=== PATIENT | male | born 1950 | race Caucasian/White ===

== ENCOUNTER 2022-01-11 15:56 | Observation (INO) | payer OTHER, SELFPAY ==
[2022-01-11 16:02] VITALS: BP 156/81; PULSE 68; RESP 18; TEMP 36.4; O2SAT 98; BMI 27.8
--- NOTE | 2022-01-11 16:09 | DI.RAD.S_ITS ---
PROCEDURE: XR FOOT RT MIN 3V INDICATIONS: ulcer, pain, TECHNIQUE: 3 views of the foot were acquired. COMPARISON: None. FINDINGS: Bones: No suspicious bony lesions. Metatarsus primus varus. Joint space narrowing and periarticular osteophyte formation at the 1st metatarsophalangeal joint. Dislocation of the 2nd and 3rd metatarsophalangeal joints. Possible mildly displaced fractures of the proximal phalanxes of the 2nd and 3rd digits. Soft tissues: No tibiotalar joint effusion. Achilles tendon appears normal. IMPRESSION: 1. Dislocated 2nd and 3rd metatarsophalangeal joints with possible associated periarticular fractures. 2. Metatarsus primus varus. Dictated by: Nacho Keenan M.D. on 01/11/2022 at 16:56 Approved by: Nacho Keenan M.D. on 01/11/2022 at 16:57
--- NOTE | 2022-01-11 17:15 | ED_ITS ---
HPI - Extremity Problem <Joe Baird PA-C - Last Filed: 01/11/22 20:32> General Chief complaint: Extremity Problem,Nontraumatic Stated complaint: Foot problems won't say more Time Seen by Provider: 01/11/22 16:10 Source: patient Mode of arrival: Ambulatory History of Present Illness HPI Narrative: Patient is a 71-year-old male who presents to the emergency room today with complaint of redness and swelling to the right foot. States he has had this for a while now he has been dealing with this chronic issue with this read. His shuttle repairer Is doctor is Dr. Rodriguez. Was advised to report to the emergency room because her. States the foot is not painful at this time and denies any drainage or other concerns. Related Data Home Medications Medication Instructions Recorded Confirmed No Known Home Medications 01/11/22 01/11/22 Allergies Allergy/AdvReac Type Severity Reaction Status Date / Time No Known Drug Allergies Allergy Verified 01/11/22 16:08 Review of Systems <Joe Baird PA-C - Last Filed: 01/11/22 20:32> Review of Systems Narrative: R.O.S.: General: No fever, chills or fatigue. Cardiovascular: No chest pain or palpitations Respiratory: No S.O.B. HEENT: No congestion, ear pain, rhinorrhea, sore throat or tinnitus Gastrointestinal: No nausea or vomiting : No urinary concerns Skin: Redness and swelling to the right foot. Musculoskeletal: No pain in muscles or joints, no limitation of range of motion, no paresthesia or numbness. ?? Neurological: Awake, alert and in not apparent distress. No Headaches, changes in vision or other related neurological concerns. Patient History <Joe Baird PA-C - Last Filed: 01/11/22 20:32> Social History household members: none Smoking Status: Never smoker alcohol intake: current Smoking Status: Never smoker alcohol intake frequency: a few times a week Substance Use Type: does not use Exam <Joe Baird PA-C - Last Filed: 01/11/22 20:32> Narrative Exam Narrative: Physical Exam: ? General: normal appearance, well developed, well nourished, alert, and awake. Not in acute distress. ? Head: Normocephalic, no lesions. Chest: Lungs CTAB, no rales, rhonchi or wheezes. ?? Heart: RRR, no murmurs, rubs or gallops. Eyes: PERRLA, EOM's full, conjunctivae clear. ? Neuro: Physiological, no localizing findings, CN3-12 intact. ?? Extremities: Patient has a deformity to his right foot where his 2nd area distal phalanges?is elevated because a hammertoe deformity causing in wound movement of the 1st and 3rd distal phalanges. The foot is also swollen on the volar surface at the area of the 2nd and 3rd distal phalanges. There is also a punctate wound in the center of the swelling that this not have drainage at this time. Foot is not tender to touch and has mild decreased sensation to touch. Skin: Normal, no rashes, no lesions noted. ?? PSYCHIATRIC: The mood is good, no blunted affect. Speech is clear. Thought process is linear, thought content is appropriate. The voice is without significant inflection. Gastrointestinal: Soft; NT; ND; Pos BS with Neg. rebound tenderness. No scars or major deformities noted on Visual Inspection. Initial Vital Signs Initial Vital Signs: Vital Signs Temperature 97.5 F L 01/11/22 16:02 Pulse Rate 68 01/11/22 16:02 Respiratory Rate 18 01/11/22 16:02 Blood Pressure 156/81 H 01/11/22 16:02 Pulse Oximetry 98 01/11/22 16:02 Oxygen Delivery Method 01/11/22 16:02 <Dickson Lawton DO - Last Filed: 01/11/22 23:44> Initial Vital Signs Initial Vital Signs: Vital Signs Temperature 97.5 F L 01/11/22 16:02 Pulse Rate 68 01/11/22 16:02 Respiratory Rate 18 01/11/22 16:02 Blood Pressure 156/81 H 01/11/22 16:02 Pulse Oximetry 98 01/11/22 16:02 Oxygen Delivery Method 01/11/22 16:02 Course <Joe Baird PA-C - Last Filed: 01/11/22 20:32> Orders Ordered: ED Orders 01/11/22 16:09 XR foot RT min 3V Stat 01/11/22 18:20 CBC Auto Diff [Complete Blood Count AUTO DIFF] Stat CMP [Comprehensive Metabolic Panel] Stat Ethanol (ETOH) Stat Prothrombin Time INR Stat 01/11/22 20:04 COVID19 -Nasal RAPID/Pre-Proc Stat Folic Acid (Folic Acid 1 Mg Tablet) 1 mg PO DAILY [facility] Sodium Chloride (Normal Saline 0.9%) 1,000 mls @ 125 mls/hr IV CONT [facility] Last Admin: 01/11/22 21:28 Dose: 125 mls/hr Documented By: GENI Lorazepam (Lorazepam 1 Mg Tablet) 0 mg PO CIWAPRN PRN; Protocol PRN Reason: Alcohol Withdrawal Morphine Sulfate (Morphine 2 Mg/Ml Inj) 2 mg IV Q4HR PRN PRN Reason: Pain, Severe (7-10) Multivitamins (Multivitamin 1 Tablet) 1 tab PO DAILY [facility] Ondansetron HCl (Ondansetron 4 Mg/2 Ml Inj) 4 mg IV Q6HR PRN PRN Reason: Nausea And Vomiting Thiamine HCl (Thiamine 100 Mg Tablet) 100 mg PO DAILY [facility] Stop: 01/15/22 09:01 Discontinued Medications Ondansetron HCl (Ondansetron 4 Mg/2 Ml Inj) 4 mg IV Q4HR PRN PRN Reason: Nausea And Vomiting Vital Signs Vital signs: Vital Signs - 8 hr 01/11/22 16:02 Temperature 97.5 F L Pulse Rate 68 Respiratory Rate 18 Blood Pressure 156/81 H Pulse Oximetry 98 Oxygen Delivery Method Room Air <Dickson Lawton, - Last Filed: 01/11/22 23:44> Orders Ordered: ED Orders 01/11/22 16:09 XR foot RT min 3V Stat 01/11/22 18:20 CBC Auto Diff [Complete Blood Count AUTO DIFF] Stat CMP [Comprehensive Metabolic Panel] Stat Ethanol (ETOH) Stat Prothrombin Time INR Stat 01/11/22 20:04 COVID19 -Nasal RAPID/Pre-Proc Stat Folic Acid (Folic Acid 1 Mg Tablet) 1 mg PO DAILY [facility] Sodium Chloride (Normal Saline 0.9%) 1,000 mls @ 125 mls/hr IV CONT [facility] Last Admin: 01/11/22 21:28 Dose: 125 mls/hr Documented By: GENI Lorazepam (Lorazepam 1 Mg Tablet) 0 mg PO CIWAPRN PRN; Protocol PRN Reason: Alcohol Withdrawal Morphine Sulfate (Morphine 2 Mg/Ml Inj) 2 mg IV Q4HR PRN PRN Reason: Pain, Severe (7-10) Multivitamins (Multivitamin 1 Tablet) 1 tab PO DAILY [facility] Ondansetron HCl (Ondansetron 4 Mg/2 Ml Inj) 4 mg IV Q6HR PRN PRN Reason: Nausea And Vomiting Thiamine HCl (Thiamine 100 Mg Tablet) 100 mg PO DAILY [facility] Stop: 01/15/22 09:01 Discontinued Medications Ondansetron HCl (Ondansetron 4 Mg/2 Ml Inj) 4 mg IV Q4HR PRN PRN Reason: Nausea And Vomiting Vital Signs Vital signs: Vital Signs - 8 hr 01/11/22 16:02 Temperature 97.5 F L Pulse Rate 68 Respiratory Rate 18 Blood Pressure 156/81 H Pulse Oximetry 98 Oxygen Delivery Method Room Air MDM - Extremity (Nontraumatic) <Joe Baird PA-C - Last Filed: 01/11/22 20:32> Lab Data Result diagrams: 01/11/22 18:20 01/11/22 18:20 Labs: Lab Results 01/11/22 01/11/22 01/11/22 Range/Units 18:20 18:20 18:20 WBC 6.7 (4.5-11.0) X10^3/uL RBC 5.06 (4.5-5.9) X10^6/uL Hgb 15.2 (13.5-17.5) g/dL Hct 44.5 (41-53) % MCV 87.9 (80-100) fL MCH 30.0 (26-34) PG MCHC 34.2 (30-36) % RDW 14.6 (11.6-14.8) % Plt Count 186 (150-400) X10^3/uL Neut % (Auto) 67.8 (50-75) % Lymph % (Auto) 23.2 L (25-40) % [place] % (Auto) 6.7 (3-14) % Eos % (Auto) 1.6 L (2-4) % Baso % (Auto) 0.7 (0-2) % Neut # (Auto) 4600 (6605-2033) /uL Lymph # (Auto) 1600 (0361-5362) /uL [place] # (Auto) 500 (0-900) /uL Eos # (Auto) 100 (0-450) /uL Baso # (Auto) 0 (0-100) /uL PT 13.2 H (10.1-12.7) SECONDS INR 1.2 (0.9-1.3) Sodium 138 (137-145) mmol/L Potassium 4.1 (3.4-5.1) mmol/L Chloride 102 (98-107) mmol/L Carbon Dioxide 26 (22-32) mmol/L BUN 14 (9-20) mg/dL Creatinine 0.76 (0.66-1.25) mg/dL Estimated GFR > 60 (>60) mL/min BUN/Creatinine Ratio 18.4 (6-22) Glucose 89 (80-110) mg/dL Calcium 8.8 (8.4-10.2) mg/dL Total Bilirubin 0.6 (0.2-1.3) mg/dL AST 30 (17-59) IU/L ALT 24 (<50) IU/L Alkaline Phosphatase 59 (38-126) U/L Total Protein 7.5 (6.3-8.2) g/dL Albumin 4.2 (3.5-5.0) g/dL Globulin 3.3 (1.7-4.1) g/dL Albumin/Globulin Ratio 1.3 (1.0-2.8) Ethyl Alcohol ( - 10) mg/dL 01/11/22 Range/Units 18:20 WBC (4.5-11.0) X10^3/uL RBC (4.5-5.9) X10^6/uL Hgb (13.5-17.5) g/dL Hct (41-53) % MCV (80-100) fL MCH (26-34) PG MCHC (30-36) % RDW (11.6-14.8) % Plt Count (150-400) X10^3/uL Neut % (Auto) (50-75) % Lymph % (Auto) (25-40) % [place] % (Auto) (3-14) % Eos % (Auto) (2-4) % Baso % (Auto) (0-2) % Neut # (Auto) (8842-9267) /uL Lymph # (Auto) (0064-9226) /uL [place] # (Auto) (0-900) /uL Eos # (Auto) (0-450) /uL Baso # (Auto) (0-100) /uL PT (10.1-12.7) SECONDS INR (0.9-1.3) Sodium (137-145) mmol/L Potassium (3.4-5.1) mmol/L Chloride (98-107) mmol/L Carbon Dioxide (22-32) mmol/L BUN (9-20) mg/dL Creatinine (0.66-1.25) mg/dL Estimated GFR (>60) mL/min BUN/Creatinine Ratio (6-22) Glucose (80-110) mg/dL Calcium (8.4-10.2) mg/dL Total Bilirubin (0.2-1.3) mg/dL AST (17-59) IU/L ALT (<50) IU/L Alkaline Phosphatase (38-126) U/L Total Protein (6.3-8.2) g/dL Albumin (3.5-5.0) g/dL Globulin (1.7-4.1) g/dL Albumin/Globulin Ratio (1.0-2.8) Ethyl Alcohol < 10 ( - 10) mg/dL Imaging Data Extremity x-ray #1: Radiologist's Impression: PROCEDURE:? XR FOOT RT MIN 3V ? INDICATIONS:? ulcer, pain, ? TECHNIQUE:? 3 views of the foot were acquired.? ? COMPARISON:? None. ? FINDINGS:? ? Bones:? No suspicious bony lesions.? Metatarsus primus varus.? Joint space narrowing and periarticular osteophyte formation at the 1st metatarsophalangeal joint.? Dislocation of the 2nd and 3rd metatarsophalangeal joints.? Possible mildly displaced fractures of the proximal phalanxes of the 2nd and 3rd digits. ? Soft tissues:? No tibiotalar joint effusion.? Achilles tendon appears normal.? ? ? IMPRESSION:? 1. Dislocated 2nd and 3rd metatarsophalangeal joints with possible associated periarticular fractures. 2. Metatarsus primus varus.? ? ? Dictated by: Nacho Keenan M.D. on 01/11/2022 at 16:56 ? ? Approved by: Nacho Keenan M.D. on 01/11/2022 at 16:57 ? MDM Narrative Medical decision making narrative: Patient is a 71-year-old male who presents to the emergency room today with complaint of redness and swelling to his right foot. I received a call from Dr. Ramon who is 1 of the patient's shuttle repairer. Dr. Ramon states there is planned to have surgery done to the patient. She described a typical scenario on the patient where they had a difficult time trying to get the patient and having follow-up arrangements for the patient. Dr. Ramon states that she is the secondary shuttle repairer Dr. rodriguez primary shuttle repairer. She states that she is okay to have the patient admitted tonight and she will perform surgery tomorrow. Discussed with and he discussed with Dr. Ramon and Dr. Lawton admitted patient. <Dickson Lawton, DO - Last Filed: 01/11/22 23:44> Lab Data Labs: Lab Results 01/11/22 01/11/22 01/11/22 Range/Units 18:20 18:20 18:20 WBC 6.7 (4.5-11.0) X10^3/uL RBC 5.06 (4.5-5.9) X10^6/uL Hgb 15.2 (13.5-17.5) g/dL Hct 44.5 (41-53) % MCV 87.9 (80-100) fL MCH 30.0 (26-34) PG MCHC 34.2 (30-36) % RDW 14.6 (11.6-14.8) % Plt Count 186 (150-400) X10^3/uL Neut % (Auto) 67.8 (50-75) % Lymph % (Auto) 23.2 L (25-40) % [place] % (Auto) 6.7 (3-14) % Eos % (Auto) 1.6 L (2-4) % Baso % (Auto) 0.7 (0-2) % Neut # (Auto) 4600 (4764-7081) /uL Lymph # (Auto) 1600 (7000-0190) /uL [place] # (Auto) 500 (0-900) /uL Eos # (Auto) 100 (0-450) /uL Baso # (Auto) 0 (0-100) /uL PT 13.2 H (10.1-12.7) SECONDS INR 1.2 (0.9-1.3) Sodium 138 (137-145) mmol/L Potassium 4.1 (3.4-5.1) mmol/L Chloride 102 (98-107) mmol/L Carbon Dioxide 26 (22-32) mmol/L BUN 14 (9-20) mg/dL Creatinine 0.76 (0.66-1.25) mg/dL Estimated GFR > 60 (>60) mL/min BUN/Creatinine Ratio 18.4 (6-22) Glucose 89 (80-110) mg/dL Calcium 8.8 (8.4-10.2) mg/dL Total Bilirubin 0.6 (0.2-1.3) mg/dL AST 30 (17-59) IU/L ALT 24 (<50) IU/L Alkaline Phosphatase 59 (38-126) U/L Total Protein 7.5 (6.3-8.2) g/dL Albumin 4.2 (3.5-5.0) g/dL Globulin 3.3 (1.7-4.1) g/dL Albumin/Globulin Ratio 1.3 (1.0-2.8) Ethyl Alcohol ( - 10) mg/dL 01/11/22 Range/Units 18:20 WBC (4.5-11.0) X10^3/uL RBC (4.5-5.9) X10^6/uL Hgb (13.5-17.5) g/dL Hct (41-53) % MCV (80-100) fL MCH (26-34) PG MCHC (30-36) % RDW (11.6-14.8) % Plt Count (150-400) X10^3/uL Neut % (Auto) (50-75) % Lymph % (Auto) (25-40) % [place] % (Auto) (3-14) % Eos % (Auto) (2-4) % Baso % (Auto) (0-2) % Neut # (Auto) (1346-4473) /uL Lymph # (Auto) (1220-0732) /uL [place] # (Auto) (0-900) /uL Eos # (Auto) (0-450) /uL Baso # (Auto) (0-100) /uL PT (10.1-12.7) SECONDS INR (0.9-1.3) Sodium (137-145) mmol/L Potassium (3.4-5.1) mmol/L Chloride (98-107) mmol/L Carbon Dioxide (22-32) mmol/L BUN (9-20) mg/dL Creatinine (0.66-1.25) mg/dL Estimated GFR (>60) mL/min BUN/Creatinine Ratio (6-22) Glucose (80-110) mg/dL Calcium (8.4-10.2) mg/dL Total Bilirubin (0.2-1.3) mg/dL AST (17-59) IU/L ALT (<50) IU/L Alkaline Phosphatase (38-126) U/L Total Protein (6.3-8.2) g/dL Albumin (3.5-5.0) g/dL Globulin (1.7-4.1) g/dL Albumin/Globulin Ratio (1.0-2.8) Ethyl Alcohol < 10 ( - 10) mg/dL Discharge Plan Departure Patient Disposition: Admitted as Observation Clinical Impression: Localized swelling of left foot Admit Date/Time: 01/11/22 19:31 Admit Provider: Amrita Ramon <Dickson Lawton DO - Last Filed: 01/11/22 23:44> Cosign ED Attending Cosignature Attestation: I was immediately available in the department for consultation. This documentation has been reviewed and I agree with assessment and plan. Supervised by Dickson Lawton DO
[2022-01-11 18:31] LABS: Add Manual Diff / Slide Review NO; Basophils Absolute Auto 0 /uL (0-100); Basophils Percent Auto 0.7 % (0-2); Eosinophils Absolute Auto 100 /uL (0-450); Eosinophils Percent Auto 1.6 % (2-4); Hematocrit 44.5 % (41-53); Hemoglobin 15.2 g/dL (13.5-17.5); Lymphocytes Absolute Auto 1600 /uL (1100-4500); Lymphocytes Percent Auto 23.2 % (25-40); Mean Corpuscular HGB Conc 34.2 % (30-36); Mean Corpuscular Volume 87.9 fL (80-100); Monocytes Absolute Auto 500 /uL (0-900); Monocytes Percent Auto 6.7 % (3-14); Neutrophils Absolute Auto 4600 /uL (1500-7000); Neutrophils Percent Auto 67.8 % (50-75); Platelet Count 186 X10^3/uL (150-400); Red Blood Cell Count 5.06 X10^6/uL (4.5-5.9); Red Cell Distribution Width 14.6 % (11.6-14.8); White Blood Cell Count 6.7 X10^3/uL (4.5-11.0)
[2022-01-11 18:41] LABS: Alanine Aminotransferase 24 IU/L (<50); Albumin 4.2 g/dL (3.5-5.0); Albumin Globulin Ratio 1.3 (1.0-2.8); Alkaline Phosphatase 59 U/L (38-126); Aspartate Aminotransferase 30 IU/L (17-59); BUN Creatinine Ratio 18.4 (6-22); Bilirubin Total 0.6 mg/dL (0.2-1.3); Blood Urea Nitrogen 14 mg/dL (9-20); Calcium 8.8 mg/dL (8.4-10.2); Carbon Dioxide 26 mmol/L (22-32); Chloride 102 mmol/L (98-107); Estimated Glomerular Filt Rate > 60 mL/min (>60); Globulin 3.3 g/dL (1.7-4.1); Glucose 89 mg/dL (80-110); HEMOLYSIS 19 (0-50); Potassium 4.1 mmol/L (3.4-5.1); Sodium 138 mmol/L (137-145); Total Protein 7.5 g/dL (6.3-8.2)
[2022-01-11 19:47] LABS: INR 1.2 (0.9-1.3); Prothrombin Time 13.2 SECONDS (10.1-12.7)
[2022-01-11 19:52] LABS: Ethanol (ETOH) < 10 mg/dL
[2022-01-11 20:25] LABS: COVID19 -Nasal RAPID Negative (Negative)
[2022-01-11 20:40] VITALS: BP 143/74; PULSE 50; O2SAT 97
[2022-01-11 20:51] VITALS: BP 155/88; PULSE 53; RESP 18; TEMP 35.8; O2SAT 98
[2022-01-11 20:55] VITALS: BMI 27.8
[2022-01-11 21:10] VITALS: BMI 24.3
[2022-01-11] MEDS: SODIUM CHLORIDE 0.9% 1,000 ML 125 ML IV (21:28)
--- NOTE | 2022-01-11 22:40 | P.CONS_ITS ---
History of Present Illness Consult details Date Patient Seen: 01/11/22 Time Patient Seen: 22:30 Chief complaint: Foot problems won't say more Narrative: Mr. Babb is a 71M who states he has no significant medical history aside from an ulcer of his foot. He denies diabetes, hypertension, but has had chronic injury to his right foot. He has an ulcer and has been treated by podiatry. He was planned to have amputation of his toes with podiatry which is why he is ad mitted today. He denies fevers/chills. He says he drinks approximately 2 etoh drinks 2-3 times per week. In the ED workup was done, vitals notable for normal temperature, blood pressure 156/81. Labs notable for WBC 6.7, hgb 15.2, plts 186. Creatinine 0.76. EtOH negative. Foot xray showed dislocated 2nd and 3rd metatarsophalagneal joints with possible periarticular fracture. He was admitted for further treatment. Medicine is consulted for concern for alcohol use. He states he has never had withdrawal, never needed rehab. Family history: denies diabetes Social history: drinks alcohol 2-3 times per week Meds Home Medications and Allergies Home Medications Medication Instructions Recorded Confirmed Type No Known Home Medications 01/11/22 01/11/22 History Allergies Allergy/AdvReac Type Severity Reaction Status Date / Time No Known Drug Allergies Allergy Verified 01/11/22 16:08 Review of Systems Review of Systems Narrative: 14 systems reviewed and negative aside from what is noted in HPI Exam Vital Signs (past 8 hours): - 01/11/22 16:02 01/11/22 20:40 01/11/22 20:51 Temperature 97.5 F L 96.5 F L Pulse Rate 68 50 L 53 L Respiratory Rate 18 18 Blood Pressure 156/81 H 143/74 H 155/88 H Pulse Oximetry 98 97 98 Oxygen Delivery Method Room Air Room Air Oxygen Delivery Method Room Air Narrative Exam Narrative: GEN: no acute distress HEENT: moist mucous membranes, PERRL NECK: trachea midlne, no JVD PULM: clear bilaterally, no wheezes, rhonchi, rales CV: regular rate and rhythm, no murmurs ABD: soft, nontender, nondistended, no organomegaly EXT: warm and well perfused with no edema, right toes bandaged NEURO: awake, alert, oriented, no focal deficits Objective Labs Result Diagrams: 01/11/22 18:20 01/11/22 18:20 Labs: Laboratory Results - last 24 hr 01/11/22 01/11/22 01/11/22 18:20 18:20 18:20 WBC 6.7 RBC 5.06 Hgb 15.2 Hct 44.5 MCV 87.9 MCH 30.0 MCHC 34.2 RDW 14.6 Plt Count 186 Neut % (Auto) 67.8 Lymph % (Auto) 23.2 L [place] % (Auto) 6.7 Eos % (Auto) 1.6 L Baso % (Auto) 0.7 Neut # (Auto) 4600 Lymph # (Auto) 1600 [place] # (Auto) 500 Eos # (Auto) 100 Baso # (Auto) 0 PT 13.2 H INR 1.2 Sodium 138 Potassium 4.1 Chloride 102 Carbon Dioxide 26 BUN 14 Creatinine 0.76 Estimated GFR > 60 BUN/Creatinine Ratio 18.4 Glucose 89 Calcium 8.8 Total Bilirubin 0.6 AST 30 ALT 24 Alkaline Phosphatase 59 Total Protein 7.5 Albumin 4.2 Globulin 3.3 Albumin/Globulin Ratio 1.3 Ethyl Alcohol SARS-CoV-2 (PCR) 01/11/22 01/11/22 18:20 20:04 WBC RBC Hgb Hct MCV MCH MCHC RDW Plt Count Neut % (Auto) Lymph % (Auto) [place] % (Auto) Eos % (Auto) Baso % (Auto) Neut # (Auto) Lymph # (Auto) [place] # (Auto) Eos # (Auto) Baso # (Auto) PT INR Sodium Potassium Chloride Carbon Dioxide BUN Creatinine Estimated GFR BUN/Creatinine Ratio Glucose Calcium Total Bilirubin AST ALT Alkaline Phosphatase Total Protein Albumin Globulin Albumin/Globulin Ratio Ethyl Alcohol < 10 SARS-CoV-2 (PCR) Negative [facility] Social History household members: none Tobacco & Substance Use Smoking Status: Never smoker alcohol intake: current Assessment & Plan Assessment & Plan narrative: Mr. Babb is a 71M with chronic toe ulcers admitted for surgical treatment, with medicine consulted for concern for alcohol use. 1. Alcohol use -patient does not sound like he has significant alcohol abuse -he denies any significant history of withdrawal -for now will place him on CIWA protocol, but have low suspicion of withdrawal -if patient remains stable with low CIWA score overnight, will likely sign off -continue MVI, thiamine, folate 2. Chronic toe ulcer -managememnt per podiatry -plan for possible surgery 01/12 -no antibiotics for now per podiatry CODE: Full Proxy: asked and none offered I have utilized all available resources to reconcile the patient's home medications Time Spent With Patient Critical Care time: I spent a total of [] minutes of critical care time on this patient's care today; this time is exclusive of procedural time.
[2022-01-12] VITALS: BP 128/67; PULSE 56; RESP 19; TEMP 36.1; O2SAT 98
[2022-01-12 04:00] VITALS: BP 114/63; PULSE 47; RESP 16; TEMP 35.9; O2SAT 97
[2022-01-12] MEDS: SODIUM CHLORIDE 0.9% 1,000 ML 125 ML IV (06:17)
--- NOTE | 2022-01-12 06:39 | PC.NURSE ---
Pt A&O4 but has stated ready to go and needs constant reminders of remote, IV, IV pump, and plan of care. Pt got frustrated w/ IV and removed it. New access was placed. Pt cooperative w/ staff and care since this episode. Has not gotten sleep since admitted to unit.
[2022-01-12 07:25] VITALS: BP 140/76; PULSE 50; RESP 18; TEMP 35.8; O2SAT 98
--- NOTE | 2022-01-12 07:55 | PM.HP.1 ---
History of Present Illness History of Present Illness Date Patient Seen: 01/12/22 Time Patient Seen: 07:00 Chief complaint: Foot problems won't say more Narrative: Al who goes by Laure is a 71-year-old male patient of mine is seen at bedside following admission via the emergency department last night for increasing concern of right foot wound. I was contacted by his co treating family support specialist Dr. Adeline Amaro, who saw him in clinic and noticed that the wound was increasing in drainage and there was a little bit more redness. We had been working with trying to get surgery set up for him and there had been limitations socially including postoperative verification of residence of care as well as coordinating with his medical doctor and potential family involvement in care and/or decision making. It was felt best after my talk with Dr. Amaro that he go to the ED. Once he was there I spoke with CECELIA Baird about his condition and then Dr. Lawton. Decision to admit for likely surgery for the foot wound and then appropriate antibiotics, wound care based on course. Seeing him this morning, he is in no pain or distress, he has a bandage wrapped around his foot, and states he did not sleep but is ok with being in the hospital. Patient History Family & Social History Social History: household members none. Son is Koko, and was who brought him to the ED. Laure states he does not desire informing his son of his status at this time. Prior Living Arrangements House Safety & Behavioral: Feels Safe in Current Yes Environment Been Physically Hurt or No Threatened By a Person Tobacco & Substance use: Smoking Status Never smoker alcohol intake current alcohol intake frequency a few times a week Substance Use Type does not use Meds Home Medications and Allergies Home Medications Medication Instructions Recorded Confirmed Type No Known Home Medications 01/11/22 01/11/22 History Allergies Allergy/AdvReac Type Severity Reaction Status Date / Time No Known Drug Allergies Allergy Verified 01/11/22 16:08 Review of Systems Constitutional Constitutional: Reports system reviewed and no additional complaints, except as documented Cardiovascular Comments: Denies chest pain or cardiac difficulties. Respiratory Comments: Denies difficulties breathing. Gastrointestinal Comments: Denies GI/ concerns. Musculoskeletal Comments: Hammertoes and bunion acknowledged, wound on Psychiatric Comments: Denies memory concerns. Exam Vital Signs (past 8 hours): - 01/12/22 00:00 01/12/22 04:00 Temperature 97.0 F L 96.6 F L Pulse Rate 56 L 47 L Respiratory Rate 19 16 Blood Pressure 128/67 114/63 Pulse Oximetry 98 97 Oxygen Delivery Method Room Air Narrative Exam Narrative: AAO in NAD. Neuro General: patient alert, patient awake and patient oriented x3 Cognition: normal cognition (however, he does appear to have some short term memory recollection deficit) Extrem Right lower extremity: normal capillary refill and foot (Mild edema dorsally at foot and plantar forefoot.) Details: edema Location: of the dorsal foot Other: Wound plantar right third metatarsal head probes to bone, serous drainage, mild erythema dorsally but not plantarly. No crepitus. Lesser digits in chronic contracture. Sensation lost to the foot. No pain to the calf. No bruising. Objective Labs Result Diagrams: 01/11/22 18:20 01/11/22 18:20 Labs: Laboratory Results - last 24 hr 01/11/22 01/11/22 01/11/22 18:20 18:20 18:20 WBC 6.7 RBC 5.06 Hgb 15.2 Hct 44.5 MCV 87.9 MCH 30.0 MCHC 34.2 RDW 14.6 Plt Count 186 Neut % (Auto) 67.8 Lymph % (Auto) 23.2 L [place] % (Auto) 6.7 Eos % (Auto) 1.6 L Baso % (Auto) 0.7 Neut # (Auto) 4600 Lymph # (Auto) 1600 [place] # (Auto) 500 Eos # (Auto) 100 Baso # (Auto) 0 PT 13.2 H INR 1.2 Sodium 138 Potassium 4.1 Chloride 102 Carbon Dioxide 26 BUN 14 Creatinine 0.76 Estimated GFR > 60 BUN/Creatinine Ratio 18.4 Glucose 89 Calcium 8.8 Total Bilirubin 0.6 AST 30 ALT 24 Alkaline Phosphatase 59 Total Protein 7.5 Albumin 4.2 Globulin 3.3 Albumin/Globulin Ratio 1.3 Ethyl Alcohol SARS-CoV-2 (PCR) 01/11/22 01/11/22 18:20 20:04 WBC RBC Hgb Hct MCV MCH MCHC RDW Plt Count Neut % (Auto) Lymph % (Auto) [place] % (Auto) Eos % (Auto) Baso % (Auto) Neut # (Auto) Lymph # (Auto) [place] # (Auto) Eos # (Auto) Baso # (Auto) PT INR Sodium Potassium Chloride Carbon Dioxide BUN Creatinine Estimated GFR BUN/Creatinine Ratio Glucose Calcium Total Bilirubin AST ALT Alkaline Phosphatase Total Protein Albumin Globulin Albumin/Globulin Ratio Ethyl Alcohol < 10 SARS-CoV-2 (PCR) Negative Assessment & Plan Assessment and plan (1) Peripheral neuropathy: Status: Acute (2) Localized swelling of left foot: Status: Acute Plan Discussed details of his foot wound with him and I reviewed our prior discussions in the past with him about the bone likely being infected, and it just has not been able to heal. We discussed the partial third ray amputation as my procedure of choice with him, in comparison to the transmetatarsal amputation. Discussed details of what this would entail, and risks, benefits, alternatives, expected outcomes. He questioned if there could be a way to straighten the great toe at this time but I reviewed that this is not appropriate at this time in the sign of an infection. He and I discussed the details of aftercare and the need for him to be in a rehab facility following this for likely an extended period of time, possibly a month or so, due to the care needed. He seems to understand this but I also will have our case mgmt team talk to him. I reviewed details with case mgmt today. He would like to proceed and I will have the procedure this evening. He is already NPO and I will check to see if EKG has been ordered. Also discussed details of plan with hospitalist, who suggested that as he is getting rehabiliation that he also have OT consult for cognition. COVID-19 COVID-19 status: Negative Result date/Date tested (Pos, Neg/Pending): 01/11/22 Time Spent With Patient Critical Care time: I spent a total of [] minutes of critical care time on this patient's care today; this time is exclusive of procedural time. Quality VTE Deep Vein Thrombosis/Pulmonary Embolism Present on Admission: No
[2022-01-12] MEDS: MULTIVITAMIN 1 TABLET 1 TAB PO (09:08)
[2022-01-12] MEDS: FOLIC ACID 1 MG TABLET PO (09:08)
[2022-01-12] MEDS: THIAMINE 100 MG TABLET PO (09:08)
[2022-01-12 11:41] VITALS: BP 122/74; PULSE 48; RESP 18; TEMP 36.2; O2SAT 99
[2022-01-12] MEDS: LORazepam 0.5 MG TABLET PO (14:02)
--- NOTE | 2022-01-12 14:43 | CM.DANOTE ---
Initial DCP Assessment Note Pt is a 71 yo male, resident of [place], arrives from the podiatrists office for concern of increasing redness and drainage from his left foot/toe. Patient scheduled for parital 3rd ray amputation (left) by Dr Ramon at 1615; Dr Ramon hoping patient will discharge to SNF for recovery PCP: Beverly Hart (sp?) Payer: [facility] This RESTORATIVE REHAB AIDE missed Dr Ramon this morning; CM team updated this RESTORATIVE REHAB AIDE that provider concerned about patient's dispo and hoping patient will DC to SNF. In addition, provider concerned about patient's heavy alcohol use This RESTORATIVE REHAB AIDE met w/patient this morning to introduce self and role. Patient reports he lives in a home in [place] with his friend/roommate Karla and that Karla is active and indp and can assist patient as needed. Patient remains agreeable to surgery and plans to return home When asked about alcohol consumption, patient denies heavy alcohol use, stating he drinks occasionally with friends. Patient denies ever going through alcohol withdrawal. Patient tells this RESTORATIVE REHAB AIDE his son Koko worries too much and he is too over bearing. Patient has two adult sons After review of medical chart; it appears that the podiatry team is hoping for a different outcome than the one they have encountered in the outpatient setting; wherein there had been limitations socially including postoperative verification of residence of care as well as coordinating with his medical doctor and potential family involvement in care and/or decision making CM team will plan to follow closely for coordination of the safest discharge plan available to patient UMER Richard Discharge Planning/Care Management CM Discharge Assessment Start: 01/12/22 13:46 Freq: Status: Active Protocol: Document 01/12/22 14:38 HALIMA (Rec: 01/12/22 14:43 HALIMA [id number]) Discharge Planning Assessment Assigned Typesetting Machine Operator/Tender UMER Walden DPOA/Assigned Designee Name None listed Advance Directives? No History Provided By Patient,Medical Record Prior Living Arrangements House Household Members friend(s) Comment Patient says he lives in [place] with roommate and friend Melinda Type of transporation used prior to Drives own vehicle admit Independent with ADL's Yes Is patient alert and oriented? Yes Comment At this time, the provider's hx of this patient does not match patient's report Discharge Plan Home Transportation Arrangement Friend or family member Additional Comment Awaiting medical POC to unfold
--- NOTE | 2022-01-12 15:48 | PM.PN.1 ---
Subjective Subjective Date Patient Seen: 01/12/22 Interval history: Discussed with Amrita Tristen, she reports concern relayed to her was for patient's worsening memory and concern for his ability to care for himself. Exam Vital Signs (past 8 hours): - 01/12/22 11:41 Temperature 97.1 F L Pulse Rate 48 L Respiratory Rate 18 Blood Pressure 122/74 Pulse Oximetry 99 Oxygen Flow Rate 0 Oxygen Delivery Method Room Air Oxygen Flow Rate 0 Narrative Exam Narrative: GEN: no acute distress HEENT: moist mucous membranes, PERRL NECK: trachea midlne, no JVD PULM: clear bilaterally, no wheezes, rhonchi, rales CV: regular rate and rhythm, no murmurs ABD: soft, nontender, nondistended, no organomegaly EXT: warm and well perfused with no edema, right toes bandaged NEURO: awake, alert, oriented, no focal deficits Objective Labs Result Diagrams: 01/11/22 18:20 01/11/22 18:20 Labs: Laboratory Results - last 24 hr 01/11/22 01/11/22 01/11/22 18:20 18:20 18:20 WBC 6.7 RBC 5.06 Hgb 15.2 Hct 44.5 MCV 87.9 MCH 30.0 MCHC 34.2 RDW 14.6 Plt Count 186 Neut % (Auto) 67.8 Lymph % (Auto) 23.2 L [place] % (Auto) 6.7 Eos % (Auto) 1.6 L Baso % (Auto) 0.7 Neut # (Auto) 4600 Lymph # (Auto) 1600 [place] # (Auto) 500 Eos # (Auto) 100 Baso # (Auto) 0 PT 13.2 H INR 1.2 Sodium 138 Potassium 4.1 Chloride 102 Carbon Dioxide 26 BUN 14 Creatinine 0.76 Estimated GFR > 60 BUN/Creatinine Ratio 18.4 Glucose 89 Calcium 8.8 Total Bilirubin 0.6 AST 30 ALT 24 Alkaline Phosphatase 59 Total Protein 7.5 Albumin 4.2 Globulin 3.3 Albumin/Globulin Ratio 1.3 Ethyl Alcohol SARS-CoV-2 (PCR) 01/11/22 01/11/22 18:20 20:04 WBC RBC Hgb Hct MCV MCH MCHC RDW Plt Count Neut % (Auto) Lymph % (Auto) [place] % (Auto) Eos % (Auto) Baso % (Auto) Neut # (Auto) Lymph # (Auto) [place] # (Auto) Eos # (Auto) Baso # (Auto) PT INR Sodium Potassium Chloride Carbon Dioxide BUN Creatinine Estimated GFR BUN/Creatinine Ratio Glucose Calcium Total Bilirubin AST ALT Alkaline Phosphatase Total Protein Albumin Globulin Albumin/Globulin Ratio Ethyl Alcohol < 10 SARS-CoV-2 (PCR) Negative PFSH Social History household members: friend(s) Smoking Status: Never smoker alcohol intake: current Assessment & Plan Assessment & Plan narrative: Mr. Babb is a 71M with chronic toe ulcers admitted for surgical treatment, with medicine consulted for concern for alcohol use which he continues to decline and cognitive impairment. 1. Alcohol use -patient does not sound like he has significant alcohol abuse -he denies any significant history of withdrawal -for now will place him on CIWA protocol, but have low suspicion of withdrawal -if patient remains stable with low CIWA score overnight, will likely sign off -continue MVI, thiamine, folate 2. Chronic toe ulcer -managememnt per podiatry -plan for possible surgery 01/12 -no antibiotics for now per podiatry 3. Probable cognitive impairment - will send evaluation for possible reversible causes with TSH, b12 panel. - recommend formal cognitive evaluation with SLUMS testing, either with OT or speech. Care management following as well. - no obvious acute infectious or metabolic abnormalities on exam or laboratory testing thus far. CODE: Full Proxy: asked and none offered Time Spent With Patient Critical Care time: I spent a total of [] minutes of critical care time on this patient's care today; this time is exclusive of procedural time. Quality VTE Deep Vein Thrombosis/Pulmonary Embolism Present on Admission: No
--- NOTE | 2022-01-12 18:38 | PC.NURSE ---
AMA - Pt disoriented this am. Thought the President was Jerardo, the year 2019, unable to recall date. SIs it Saturday...Saturday? It's Saturday. Asked if he knew why he was here, did know he was here to have foot surgery. Reorientation given. Pt wants to be the one to give most information and sign for self. Discussed his relationship with his son, it has been strained at times. Pt stated the son could be given more broad details. PARISAou can tell him I'm having surgery and when, what to expect, but I want to give him the details. Son Koko called and given broad details per pt. Additionally he was notified that his father wanted only certain information given to him. The son is okay with this. Later this morning pt was discussing going home, wanted to know where his car was parked. His car isn't here. His son brought him to the hospital. SOh yes, thats right. Shortly after this he pulled out his IV and didn't want it restarted. However he does want to go through with surgery. Agreed to allow IV to be restarted right before surgery. Pt decided to stay. Dr. Ramon called floor inquiring about pt and she was notified of his disorientation, restlessness, hard to know if partially related to alcohol or not, first score was a 2. Discussed some ativan oral. Received order. Pt asked what med was for and he was told it was for his anxiety, restlessness. SThats a good idea. I am anxious. I really want to go home instead. Pt did doze briefly. Awakened by OR crew. Concern was express over pt's mental status and if he could give informed consent. The conversation was upsetting to pt. SThere's nothing wrong with me, I can sign my own papers and my sons can sign their own. Dr. Ramon came up to see pt. She spoke with pt at length about the risks of going home vs staying at the hospital. Pt became restless and anxious and started pacing in the hallway and turning to go into patients rooms looking for a way to leave. Dr. Ramon went to go speak with Dr. Owens about pt. Son was called and told his father doesn't want to stay and if he could technician support association. Son wants to comply with Dr. recommendation. Son does have temporary health care for pt. Pt then left down the south floor exit sign with Dr. Ramon and CO Sheba RN. Out in the parking lot the police were called who did speak with pt. He is not in any emergency need at this time and they are unable to hold. On pt's own accord he came back to facility and his room. However he is adament in his refusal to stay. He lives in [place] but says he will find his own ride home. Enc pt to call his friend Naya who he had spoken to earlier when obtaining bogdan christie phone number. Dr. Ramon has received a copy from pt's current MD regarding son's Koko [facility] health care orders. Pt know longer wants son called now and in the written notice he can revoke same. Asked Dr. Ramon about getting psych involved. Pt starting walking the hallway again. He does have someone with him at all times since departing the building. If pt leaves it is AMA. He was happy to sign the release form. Bogdan Sutherland called and informed pt had made the decision to revoke the [facility] health care for now and he is leaving with or without a ride. Pt left AMA.
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
== END 2022-01-12 18:10 | disposition home or self-care (01) ==
LOC: ED 19:25 → AC 19:31
PROVIDERS: Emergency Medicine; Admitting Provider Podiatrist; Emergency Provider Physician Assistant; PCP Family Medicine; Visit Provider Podiatrist
DX: L97.519 Non-pressure chronic ulcer of other part of right foot with unspecified severity (principal); Z53.29 Procedure and treatment not carried out because of patient's decision for other reasons; Z20.822 Contact with and (suspected) exposure to COVID-19
CPT/HCPCS: 36415; 73630; 80053; 80320; 85025; 85610; 87635; 93005; 96360; 96361; 99283; 99284; C9803; G0378; J2250

== ENCOUNTER 2022-01-12 19:29 | Emergency (ER) | payer OTHER, SELFPAY ==
[2022-01-11 21:10] VITALS: BMI 24.3
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
[2022-01-12 21:39] VITALS: BP 150/83; PULSE 52; TEMP 37.1; O2SAT 97
[2022-01-12] MEDS: cephALEXin 250 MG CAPSULE 500 MG PO (22:11)
== END 2022-01-12 22:17 | disposition home or self-care (01) ==
PROVIDERS: Emergency Provider Emergency Medicine; PCP Family Medicine
DX: L97.516 Non-pressure chronic ulcer of other part of right foot with bone involvement without evidence of necrosis (principal)
CPT/HCPCS: 99283